=== PATIENT | female | born 1945 | race Caucasian/White ===

== ENCOUNTER 2020-11-07 07:01 | Outpatient (REF) | payer MEDICARE, BC, SELFPAY ==
[2020-11-07 08:24] LABS: Hemoglobin 11.7 g/dl (12.0-16.0); Mean Corpuscular HGB Conc 31.6 g/dl (31.0-35.0); Mean Corpuscular Hemoglobin 30.2 pg (27.0-33.0); Mean Corpuscular Volume 95.4 fL (80-98); Mean Platelet Volume 10.9 fL (9.4-12.3); Platelet Count 164 X10*3/uL (160-400); Red Blood Count 3.88 X10*6/uL (4.20-5.50); Red Cell Distribution Width 13.3 % (11.0-16.0)
[2020-11-07 08:37] LABS: Alanine Aminotransferase 27 U/L (0-31); Albumin Level 4.4 g/dL (3.5-5.0); Alkaline Phosphatase 59 U/L (39-117); Anion Gap 14 (12-20); Aspartate Amino Transferase 24 U/L (5-31); Bilirubin Total 0.6 mg/dL (0.0-1.0); Blood Urea Nitrogen 27 mg/dL (9-16); Calcium 9.2 mg/dL (8.4-10.2); Carbon Dioxide 27 mmol/L (22-29); Chloride 106 mmol/L (96-108); Cholesterol 187 mg/dL; Estimated Glomerular Filt Rate 50; Glucose Fasting 102 mg/dL (60-99); HDL Cholesterol 79 mg/dL; LDL Cholesterol Calculated 98 mg/dl; Potassium 4.2 mmol/L (3.3-5.1); Sodium 143 mmol/L (135-145); Total Protein 7.3 g/dL (6.5-8.0); Triglycerides 54 mg/dL
[2020-11-07 08:48] LABS: Glucose Urine UA NEG (NEG); Leukocyte Esterase Urine NEG (NEG); Nitrite Urine NEG (NEG); PH 5.5 (5.0-8.0); Specific Gravity - Urine >= 1.030 (1.005-1.025); Urine Blood NEG (NEG); Urine Ketones NEG (NEG); Urine Protein NEG (NEG-TRACE)
[2020-11-07 08:58] LABS: Appearance Urine CLEAR; Color Urine YELLOW
[2020-11-07 09:02] LABS: Vitamin D 25-OH Total 33.8 ng/mL (>30)
[2020-11-07 12:37] LABS: Amorphous Sediment Urine 2+ /LPF; RBC Urine 0 /HPF (0); Squamous Epithelial Cell Urine TRACE /LPF; WBC Urine 0 /HPF (0-4)
== END 2020-11-07 07:02 | disposition home or self-care (01) ==
LOC: HO.LAB 07:01
PROVIDERS: PCP Internal Medicine; Visit Provider Internal Medicine
DX: Z00.00 Encounter for general adult medical examination without abnormal findings (principal); I10 Essential (primary) hypertension
CPT/HCPCS: 36415; 80053; 80061; 81001; 82306; 85027

== ENCOUNTER 2021-11-04 07:14 | Outpatient (REF) | payer MEDICARE, BC, SELFPAY ==
[2021-11-04 07:56] LABS: Hematocrit 37.9 % (37.0-47.0); Hemoglobin 11.8 g/dl (12.0-16.0); Mean Corpuscular HGB Conc 31.1 g/dl (31.0-35.0); Mean Corpuscular Hemoglobin 29.4 pg (27.0-33.0); Mean Corpuscular Volume 94.5 fL (80.0-98.0); Mean Platelet Volume 10.6 fL (9.4-12.3); Platelet Count 165 X10*3/uL (160-400); Red Blood Count 4.01 X10*6/uL (4.20-5.50); Red Cell Distribution Width 13.1 % (11.0-16.0); White Blood Count 6.2 X10*3/uL (4.8-10.8)
[2021-11-04 08:41] LABS: Alanine Aminotransferase 28 U/L (0-31); Albumin Level 4.6 g/dL (3.5-5.0); Alkaline Phosphatase 56 U/L (39-117); Anion Gap 10 (12-20); Aspartate Amino Transferase 25 U/L (5-31); Bilirubin Total 0.5 mg/dL (0.0-1.0); Blood Urea Nitrogen 40 mg/dL (9-16); Calcium 9.9 mg/dL (8.4-10.2); Carbon Dioxide 31 mmol/L (22-29); Chloride 106 mmol/L (96-108); Cholesterol 198 mg/dL; Estimated Glomerular Filt Rate 43; Glucose Fasting 107 mg/dL (60-99); HDL Cholesterol 82 mg/dL; LDL Cholesterol Calculated 105 mg/dl; Sodium 143 mmol/L (135-145); Total Protein 7.4 g/dL (6.5-8.0); Triglycerides 59 mg/dL
[2021-11-04 08:45] LABS: TSH reflex Free T4 1.39 uIU/mL (0.32-4.0); Vitamin D 25-OH Total 38.3 ng/mL (>30)
[2021-11-04 08:47] LABS: Creatinine Urine 128.38 mg/dL; Microalbum/Creatinine Ratio Ur 72.4 ug/mg cr
[2021-11-04 08:54] LABS: Estimated Average Glucose 111 mg/dL; Hemoglobin A1c % 5.5 %
== END 2021-11-04 07:15 | disposition home or self-care (01) ==
LOC: HO.LAB 07:14
PROVIDERS: PCP Physician Assistant; Visit Provider Physician Assistant
DX: I10 Essential (primary) hypertension (principal); M81.0 Age-related osteoporosis without current pathological fracture
CPT/HCPCS: 36415; 80053; 80061; 82043; 82306; 83036; 84443; 85027

== ENCOUNTER 2021-11-15 08:13 | Outpatient (REF) | payer MEDICARE, BC, SELFPAY ==
--- NOTE | ~2021-11-15 | MM_ITS ---
EXAMINATION: MM SCREENING DIGITAL BREAST TOMOSYNTHESIS, BILATERAL CLINICAL INFORMATION: Screening. Asymptomatic. The lifetime risk of breast cancer based on the Tyrer-Cuzick Model is 2%. COMPARISON: Mammography: 04/17/2018, 03/28/2017, 02/09/2016 TECHNIQUE: Digital breast tomosynthesis is performed in both the craniocaudal and mediolateral oblique views along with computer-aided detection (CAD). Synthesized 2D images are generated from the tomosynthesis. Additional left MLO view is provided. FINDINGS: There are scattered areas of fibroglandular density (ACR BI-RADS breast composition Category b). There are no significant masses, abnormal calcifications, or other abnormalities. Nodular asymmetry medial left breast noted on prior studies is not seen with certainty. No developing density or architectural abnormality. MM/MM tomosynthesis screening BI IMPRESSION: No mammographic evidence of malignancy. ASSESSMENT: BI-RADS 2: Benign RECOMMENDATION: Routine annual mammography screening. This patient's information was entered into a reminder system with a target due date for their next mammogram.
--- NOTE | ~2021-11-15 | MM_ITS ---
EXAMINATION: BONE DENSITOMETRY CLINICAL INDICATION: Age-related osteoporosis without current pathological fracture. COMPARISON: Previous BD dated 04/17/2018 and baseline BD dated 09/22/2007. TECHNIQUE: Using a [employer] DXA System (software version: 13.1) manufactured by [employer], dual-energy x-ray absorptiometry was performed of the lumbar spine and left hip. The images are of good technical quality. Summary results are attached. FINDINGS: AP SPINE L1-L4: Current: BMD 0.999 g/cm2, Z-score 0.8, T-score -1.5, osteopenia, 0.7% decrease from previous, 5.8% decrease from baseline (<5% change is not significant). Prior: BMD 1.006 g/cm2. Baseline: BMD 1.061 g/cm2. LEFT FEMUR, NECK: Current: BMD 0.626 g/cm2, Z-score -0.7, T-score -3.0, osteoporosis. Prior: BMD 0.687 g/cm2. Baseline: BMD 0.742 g/cm2. LEFT FEMUR, TOTAL: Current: BMD 0.722 g/cm2, Z-score -0.1, T-score -2.3, osteopenia, 4.9% decrease from previous, 15.9% decrease from baseline (<5% change is not significant). Prior: BMD 0.759 g/cm2. Baseline: BMD 0.859 g/cm2. IDENTIFIED RISK FACTORS: Menopause, thiazide. HISTORY OF FRACTURE: None listed. MEDICATIONS: Calcium or multivitamin. MM/XR DEXA axial skeleton IMPRESSION: 1. DIAGNOSIS: Osteoporosis based on the lowest T-score value of -3.0 in the femoral neck applying World Health Organization criteria. 2. 10-YEAR FRACTURE RISK PREDICTION, FRAX: According to the guidelines, FRAX calculation should only be performed on patients in the osteopenia bone density category. Therefore, FRAX was not performed on this patient. 3. Treatment Recommendations: NOF guidelines recommend consideration for treatment in postmenopausal women and men age 50 and older presenting with the following: -A hip or vertebral (clinical or morphometric) fracture. -T-score less than or equal to -2.5 at the femoral neck or spine after appropriate evaluation to exclude secondary causes. -Low bone mass at the hip or spine and a 10-year fracture probability by FRAX of greater than or equal to 3% for hip fracture or greater than or equal to 20% for major osteoporotic fracture based on the [place] adapted WHO algorithm. 4. Other Recommendations: All treatment decisions require clinical judgment and consideration of individual patient factors, including patient preferences, comorbidities, previous drug use, risk factors not captured in the FRAX model (e.g. frailty, falls, vitamin D deficiency, increased bone turnover, interval significant decline in bone density) and possible under or overestimation of fracture risk by FRAX. Additional medical evaluation for secondary cause of low bone mineral density may be appropriate. FUTURE SCAN RECOMMENDATION: People with diagnosed cases of osteoporosis or at high risk for fracture should have regular bone mineral density tests. For patients eligible for Medicare, routine testing is allowed once every 2 years. The testing frequency can be increased to one year for patients who have rapidly progressing disease, those who are receiving or discontinuing medical therapy to restore bone mass, or have additional risk factors.
== END 2021-11-15 08:14 | disposition home or self-care (01) ==
LOC: HO.MAMMO 08:13
PROVIDERS: Visit Provider Physician Assistant
DX: Z12.31 Encounter for screening mammogram for malignant neoplasm of breast (principal); M81.0 Age-related osteoporosis without current pathological fracture; Z78.0 Asymptomatic menopausal state; Z79.899 Other long term (current) drug therapy
CPT/HCPCS: 77063; 77067; 77080

== ENCOUNTER 2022-01-10 09:10 | Outpatient (REF) | payer MEDICARE, BC, SELFPAY ==
--- NOTE | ~2022-01-10 | XR_ITS ---
EXAMINATION: XR CHEST CLINICAL INFORMATION: Bronchitis. COMPARISON: None TECHNIQUE: 2 views of the chest were obtained. FINDINGS: The lungs are well-expanded and clear. Heart size and pulmonary vascularity is normal. No gross bony abnormality seen. XR/XR chest 2V IMPRESSION: Unremarkable chest exam.
== END 2022-01-10 09:11 | disposition home or self-care (01) ==
LOC: HO.XRAY 09:10
PROVIDERS: PCP Physician Assistant; Visit Provider Physician Assistant
DX: J40 Bronchitis, not specified as acute or chronic (principal)
CPT/HCPCS: 71046

== ENCOUNTER 2022-10-27 07:18 | Outpatient (REF) | payer MEDICARE, BC, SELFPAY ==
[2022-10-27 08:03] LABS: Hematocrit 37.4 % (37.0-47.0); Hemoglobin 11.9 g/dl (12.0-16.0); Mean Corpuscular HGB Conc 31.8 g/dl (31.0-35.0); Mean Corpuscular Volume 94.2 fL (80.0-98.0); Mean Platelet Volume 10.8 fL (9.4-12.3); Platelet Count 147 X10*3/uL (160-400); Red Blood Count 3.97 X10*6/uL (4.20-5.50); Red Cell Distribution Width 12.8 % (11.0-16.0); White Blood Count 5.8 X10*3/uL (4.8-10.8)
[2022-10-27 08:58] LABS: Microalbum/Creatinine Ratio Ur 52.3 ug/mg cr
[2022-10-27 12:29] LABS: Alanine Aminotransferase 19 U/L (0-31); Albumin Level 4.3 g/dL (3.5-5.0); Alkaline Phosphatase 56 U/L (39-117); Anion Gap 16 (12-20); Aspartate Amino Transferase 19 U/L (5-31); Bilirubin Total 0.5 mg/dL (0.0-1.0); Blood Urea Nitrogen 29 mg/dL (9-16); Calcium 9.3 mg/dL (8.4-10.2); Carbon Dioxide 24 mmol/L (22-29); Chloride 108 mmol/L (96-108); Cholesterol 185 mg/dL; Estimated Glomerular Filt Rate 45; Glucose Fasting 104 mg/dL (60-99); HDL Cholesterol 72 mg/dL; LDL Cholesterol Calculated 101 mg/dl; Potassium 4.7 mmol/L (3.3-5.1); Sodium 143 mmol/L (135-145); Total Protein 6.9 g/dL (6.5-8.0); Triglycerides 60 mg/dL
[2022-10-27 12:44] LABS: TSH reflex Free T4 1.15 uIU/mL (0.32-4.0)
== END 2022-10-27 07:19 | disposition home or self-care (01) ==
LOC: HO.LAB 07:18
PROVIDERS: PCP Physician Assistant; Visit Provider Physician Assistant
DX: I10 Essential (primary) hypertension (principal); E78.2 Mixed hyperlipidemia
CPT/HCPCS: 36415; 80053; 80061; 82043; 84443; 85027

== ENCOUNTER 2022-11-28 14:17 | Outpatient (REF) | payer MEDICARE, BC, SELFPAY ==
--- NOTE | ~2022-11-28 | US_ITS ---
EXAMINATION: US EXTRACRANIAL CAROTID DUPLEX, BILATERAL CLINICAL INFORMATION: Right carotid bruit. COMPARISON: None available. TECHNIQUE: Real-time ultrasound and Doppler techniques (integrating B-mode 2-D vascular images, Doppler spectral analysis and color-flow Doppler imaging) were utilized to interrogate the extracranial carotid arteries, the vertebral arteries and proximal subclavian arteries bilaterally. The degree of stenosis is determined by criteria similar to NASCET. FINDINGS: Right Side: 1. There is moderate atherosclerotic plaque seen in the bifurcation/proximal ICA region. 2. The common carotid artery PSV proximally is 108 cm/s and distally 44 cm/s. 3. The proximal internal carotid artery velocities are 65 cm/s systolic and 14 cm/s diastolic. 4. The proximal external carotid artery PSV is 73 cm/s. 5. The vertebral artery shows antegrade flow. 6. The subclavian artery waveforms are normal. Left Side: 1. There is moderate atherosclerotic plaque seen in the bifurcation/proximal ICA region. 2. The common carotid artery PSV proximally is 126 cm/s and distally 92 cm/s. 3. The proximal internal carotid artery velocities are 51 cm/s systolic and 16 cm/s diastolic. 4. The proximal external carotid artery PSV is 102 cm/s. 5. The vertebral artery shows antegrade flow. 6. The subclavian artery waveforms are normal. Arrhythmia present. US/US carotid duplex BI IMPRESSION: 1. RIGHT: Minimal, non-hemodynamically significant stenosis of the proximal right internal carotid artery corresponding to a 0-49% stenosis by velocity criteria. 2. LEFT: Minimal, non-hemodynamically significant stenosis of the proximal left internal carotid artery corresponding to a 0-49% stenosis by velocity criteria.
== END 2022-11-28 14:18 | disposition home or self-care (01) ==
LOC: HO.HMGCX 14:17
PROVIDERS: PCP Physician Assistant; Visit Provider Physician Assistant
DX: R09.89 Other specified symptoms and signs involving the circulatory and respiratory systems (principal)
CPT/HCPCS: 93880

== ENCOUNTER 2023-05-20 07:41 | Outpatient (REF) | payer MEDICARE, BC, SELFPAY ==
[2023-05-20 08:37] LABS: Hematocrit 35.9 % (37.0-47.0); Hemoglobin 11.4 g/dl (12.0-16.0); Mean Corpuscular HGB Conc 31.8 g/dl (31.0-35.0); Mean Corpuscular Volume 94.5 fL (80.0-98.0); Mean Platelet Volume 10.8 fL (9.4-12.3); Platelet Count 127 X10*3/uL (160-400); Red Cell Distribution Width 13.1 % (11.0-16.0); White Blood Count 3.8 X10*3/uL (4.8-10.8)
== END 2023-05-20 07:42 | disposition home or self-care (01) ==
LOC: HO.LAB 07:41
PROVIDERS: PCP Physician Assistant; Visit Provider Physician Assistant
DX: E78.2 Mixed hyperlipidemia (principal); I10 Essential (primary) hypertension
CPT/HCPCS: 36415; 80053; 80061; 85027

== ENCOUNTER 2023-05-29 08:01 | Outpatient (AMB) | payer MEDICARE, BC, SELFPAY ==
[2023-05-29 08:11] VITALS: BP 132/76; PULSE 71; O2SAT 97; BMI 19.9
--- NOTE | 2023-05-29 08:11 | A.OFFPC_ITS ---
Vital Signs 05/29/23 08:11 Height 5 ft 2 in Weight 109 lb BMI 19.9 BP 132/76 Blood Pressure Location Lt brachial Position Sitting Pulse 71 Pulse Source Pulse Oximeter Pulse Oximetry (%) 97 Oxygen Delivery Method Room Air Intake Visit Reasons: Follow-up hypertension /hyperlipidemia Allergies alendronate sodium Adverse Reaction (Intermediate, Verified 05/29/23 08:28) red eyes hydrochlorothiazide Adverse Reaction (Intermediate, Verified 05/29/23 08:28) frequent urination Medication List - Last Reconciled 05/29/23 by Emerson Kathleen PA-C atenolol 50 mg PO DAILY atorvastatin 10 mg PO DAILY cholecalciferol (vitamin D3) 50 mcg PO DAILY 90 days clonidine HCl 0.1 mg PO BID 90 days ibuprofen 600 mg PO TID trazodone 100 mg PO BEDTIME Tobacco use date assessed: 11/22/22 Fall risk assessment: No Falls in past year Last assessed Fall Risk: 05/29/23 Dental Screening Dental Screen Date: 05/29/23 Did you have a dental visit in the last 12 months?: No Did you have a dental problem in the last 6 months where you did not have access to dental care?: No Was dental information given to patient?: Patient has dentist HPI Follow-up hypertension /hyperlipidemia HPI Details Patient is a 76-year-old female here today for a PE .? Patient has a past medical history significant for hypertension, hyperlipidemia, insomnia, carotid stenosis .. HTN: Does not monitor her BP at her BP at home.? Today in office blood pressure acceptable.? ..? She denies any headaches, shortness of breath, chest discomfort. .. Carotid stenosis: Carotid ultrasound done in November 2022 showing a moderate atherosclerotic prior in the right carotid artery. No severe stenosis requiring intervention. .. HLd: Lipid panel has been stable showing appropriate total cholesterol and LDL. Continues on on statin therapy without any side effects.? Will continue to follow lipid panel.? .. insomnia: Continues on trazodone with good effect on her sleep, Recently increased her trazodone to 100 mg at night which has been effective for her sleep. .. Reviewed labs and noted a pancytopenia. She does report some daytime fatigue, attributes this to getting older. Will refer to Hematology for further evaluation. Laboratory Tests 05/20/23 08:06 WBC 3.8 L RBC 3.80 L Hgb 11.4 L Plt Count 127 L Creatinine 0.99 Fasting Glucose 104 H Cholesterol 163 LDL Cholesterol, C alc 81 PFSH Medical History Annual physical exam Anxiety Cataract Osteoporosis Insomnia HTN (hypertension) Surgical History H/O colonoscopy Family History Father Lung cancer Mother CVD (cardiovascular disease) Stroke Social History Housing: House Alcohol intake: never Patient Tobacco Use Status: Never used Tobacco e-Cigarette/Vaping Use: Never Used Second Hand Smoke Exposure: No service: No Current occupational status: retired Current occupation: [employer]- [employer] Cognitive needs: No Hearing needs: No Vision needs: Yes (Glasses) Questionnaire PHQ-9 Over the last 2 weeks, how often have you been bothered by any of the following problems? 1. Little interest or pleasure in doing things: not at all 2. Feeling down, depressed, or hopeless: not at all 3. Trouble falling or staying asleep, or sleeping too much: not at all 4. Feeling tired or having little energy: not at all 5. Poor appetite or overeating: not at all 6. Feeling bad about yourself - or that you are a failure or have let yourself or your family down: not at all 7. Trouble concentrating on things, such as reading the newspaper or watching television: not at all 8. Moving or speaking so slowly that other people could have noticed. Or the opposite - being so fidgety or restless that you have been moving around a lot more than usual: not at all 9. Thoughts that you would be better off or of hurting yourself in some way: not at all Total score: 0 Depression Screening Interpretation: Negative Depression Screening Done: Yes 91118 - PHQ-9 Billing: Yes Source: Developed by Drs. Antonio Bruce, Brie Gray, Ubaldo Torres and colleagues, with an educational john from [employer]. Thrive Questionnaire Date Thrive assessed: 11/22/22 AUDIT C Alcohol Use Questionnaire (AUDIT-C) 1. How often do you have a drink containing alcohol?: Never 3. How often do you have six or more drinks on one occasion?: Never Total Score: 0 JULIAN-7 AMB Questionnaire JULIAN-7 Date JULIAN - 7 assessed: 11/22/22 Source: Developed by Drs. Antonio Bruce, Brie Gray, Ubaldo Torres and colleagues, with an educational john from [employer]. Physical exam (Primary Care) Vital Signs: Last Vital Signs Pulse 71 05/29/23 08:11 BP 132/76 05/29/23 08:11 Pulse Ox 97 05/29/23 08:11 Oxygen Delivery Method Room Air 05/29/23 08:11 BMI result Body Mass Index 19.9 Tobacco/Smoking Status: Tobacco use Status Tobacco use date assessed 11/22/22 05/29/23 08:12 Patient Tobacco Use Status Never used Tobacco 05/29/23 08:12 e-Cigarette/Vaping Use Never Used 05/29/23 08:12 PHQ-9: PHQ-9 Score PHQ-9: Total score 0 05/29/23 08:12 Depression Screening Interpretation: Negative Thrive Assessment: Date of Thrive Assessment Date Thrive assessed 11/22/22 05/29/23 08:12 Assessment and Plan Assessment & Plan (1) HTN (hypertension): Code(s): I10 - Essential (primary) hypertension Qualifiers: Hypertension type: primary hypertension Qualified Code(s): I10 - Essential (primary) hypertension Plan: Blood pressure today in office acceptable. Will continue her on her current dose of atenolol. Had side effect of urinary frequency with hydrochlorothiazide. Goal blood pressures to be below 140/90. (2) Right carotid bruit: Code(s): R09.89 - Other specified symptoms and signs involving the circulatory and respiratory systems Plan: Carotid ultrasound without any severe stenosis.. Will continue to manage cholesterol and blood pressure. (3) Mixed hyperlipidemia: Code(s): E78.2 - Mixed hyperlipidemia Plan: Patient continues on statin therapy without side effect. Most recent lipid panel showing appropriate total cholesterol and LDL.. Goal LDL to be below 130. (4) Insomnia: Code(s): G47.00 - Insomnia, unspecified Qualifiers: Insomnia type: primary Qualified Code(s): F51.01 - Primary insomnia Plan: Has been sleeping very well with trazodone 100 mg. (5) Pancytopenia: Code(s): D61.818 - Other pancytopenia Plan: Noted to pancytopenia most recent labs. Does report some fatigue during the day. Will refer to Hematology for further evaluation. Orders: Orders Comprehensive [place]. Panel Fast 6 Months I10 - Essential (primary) hypertension Lipid Panel 6 Months E78.2 - Mixed hyperlipidemia Microalbumin, Random (w Creat) 6 Months I10 - Essential (primary) hypertension Referrals Hematology & Oncology Referral D61.818 - Other pancytopenia Medications: Refilled ibuprofen 600 mg PO TID 90 tabs 3RF Coding Level of Care Code Est Pt Level 4 (58416) Diagnoses Primary hypertension I10 Hypertension type: primary hypertension Right carotid bruit R09.89 Mixed hyperlipidemia E78.2 Primary insomnia F51.01 Insomnia type: primary Pancytopenia D61.818
== END 2023-05-29 08:47 | disposition home or self-care (01) ==
PROVIDERS: Visit Provider Physician Assistant
DX: I10 Essential (primary) hypertension (principal); R09.89 Other specified symptoms and signs involving the circulatory and respiratory systems; E78.2 Mixed hyperlipidemia; D61.818 Other pancytopenia; F51.01 Primary insomnia
CPT/HCPCS: 99214

== ENCOUNTER → 2023-06-19 13:50 | Outpatient (BNV) | payer MEDICARE, BC, SELFPAY | PROVIDERS: PCP Physician Assistant; Visit Provider Internal Medicine | DX: D61.818 Other pancytopenia (principal) | CPT/HCPCS: 99204; 99213 ==

== ENCOUNTER 2023-11-20 08:08 | Outpatient (REF) | payer MEDICARE, BC, SELFPAY ==
[2023-11-20 10:12] LABS: Alanine Aminotransferase 18 U/L (0-31); Alkaline Phosphatase 49 U/L (39-117); Anion Gap 9 (12-20); Aspartate Amino Transferase 18 U/L (5-31); Bilirubin Total 0.4 mg/dL (0.0-1.0); Blood Urea Nitrogen 22 mg/dL (9-16); Calcium 9.2 mg/dL (8.4-10.2); Carbon Dioxide 30 mmol/L (22-29); Chloride 108 mmol/L (96-108); Cholesterol 155 mg/dL (<200); Estimated Glomerular Filt Rate 54; Glucose Fasting 96 mg/dL (60-99); HDL Cholesterol 69 mg/dL (>40); LDL Cholesterol Calculated 74 mg/dL (<100); Potassium 4.3 mmol/L (3.3-5.1); Sodium 143 mmol/L (135-145); Total Protein 6.8 g/dL (6.5-8.0); Triglycerides 63 mg/dL (<150)
[2023-11-20 10:26] LABS: Creatinine Urine 331.25 mg/dL; Microalbum/Creatinine Ratio Ur 37.4 ug/mg cr (<30)
== END 2023-11-20 08:09 | disposition home or self-care (01) ==
LOC: HO.LAB 08:08
PROVIDERS: PCP Physician Assistant; Visit Provider Physician Assistant
DX: I10 Essential (primary) hypertension (principal); E78.2 Mixed hyperlipidemia
CPT/HCPCS: 36415; 80053; 80061; 82043; 82570

== ENCOUNTER 2023-11-25 09:07 | Outpatient (AMB) | payer MEDICARE, BC, SELFPAY ==
[2023-11-25 09:40] VITALS: BP 156/60; PULSE 58; O2SAT 96; BMI 18.0
--- NOTE | 2023-11-25 09:40 | A.OFFPC_ITS ---
Vital Signs 11/25/23 09:40 Height 5 ft 3.5 in Weight 103 lb 8 oz BMI 18.0 BP 156/60 H Blood Pressure Location Lt brachial Position Sitting Pulse 58 Pulse Source Pulse Oximeter Pulse Oximetry (%) 96 Oxygen Delivery Method Room Air Intake Visit Reasons: Annual Exam Intake Note: Patient is here today for a physical. 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 Accompanied by: Self / Same As Patient Allergies alendronate sodium Adverse Reaction (Intermediate, Verified 11/25/23 10:04) red eyes hydrochlorothiazide Adverse Reaction (Intermediate, Verified 11/25/23 10:04) frequent urination Medication List - Last Reconciled 11/25/23 by Emerson Kathleen PA-C atenolol 50 mg PO DAILY atorvastatin 10 mg PO DAILY cholecalciferol (vitamin D3) 50 mcg PO DAILY 90 days clonidine HCl 0.1 mg PO BID 90 days ibuprofen 600 mg PO TID trazodone 100 mg PO BEDTIME Tobacco use date assessed: 11/25/23 Fall risk assessment: No Falls in past year Last assessed Fall Risk: 11/25/23 Dental Screening Dental Screen Date: 11/25/23 Did you have a dental visit in the last 12 months?: No Did you have a dental problem in the last 6 months where you did not have access to dental care?: No Was dental information given to patient?: Patient has dentist HPI Annual Exam HPI Details Patient is a 76-year-old female here today for a PE .? Patient has a past medical history significant for hypertension, hyperlipidemia, insomnia, carotid stenosis Concern--> has a skin lesion over her left facial she, has called dermatology group and has an upcoming appointment in February .. HTN: Patient's blood pressure elevated today in office. She does not regularly check her blood pressure at home...? She denies any headaches, shortness of breath, chest discomfort. Noted microalbuminuria on most recent labs. PLAN: Will start low-dose lisinopril for renal protection and better blood pressure control. .. Carotid stenosis: Carotid ultrasound done in November 2022 showing a moderate atherosclerotic prior in the right carotid artery. No severe stenosis requiring intervention. .. HLd: Lipid panel has been stable showing appropriate total cholesterol and LDL. Continues on on statin therapy without any side effects.? Will continue to follow lipid panel.? .. insomnia: Continues on trazodone with good effect on her sleep, Recently increased her trazodone to 100 mg at night which has been effective for her s leep. Colon cancer screening: Not interested in any further colonoscopies Mammogram: Done in January of 2022 BI-RADS 1- has gotten reminder though not interested in any further mammograms due date age Vaccines: Up-to-date with COVID vaccine, pneumonia vaccine, Laboratory Tests 10/27/22 06/19/23 11/20/23 07:40 14:23 08:37 Hgb 11.2 L Creatinine 1.00 Cholesterol 155 LDL Cholesterol, C alc 74 Urine Microalbumin 82.0 11/20/23 Unknown Hgb Creatinine Cholesterol LDL Cholesterol, C alc Urine Microalbumin 124.0 PFSH Medical History Annual physical exam Anxiety Cataract Osteoporosis Insomnia HTN (hypertension) Surgical History H/O colonoscopy Family History Father Lung cancer Mother CVD (cardiovascular disease) Stroke Social History Household Members: Spouse and Family Housing: House Alcohol intake: never Patient Tobacco Use Status: Never used Tobacco e-Cigarette/Vaping Use: Never Used Second Hand Smoke Exposure: No service: No Current occupational status: retired 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 1. Little interest or pleasure in doing things: not at all 2. Feeling down, depressed, or hopeless: not at all 3. Trouble falling or staying asleep, or sleeping too much: not at all 4. Feeling tired or having little energy: not at all 5. Poor appetite or overeating: not at all 6. Feeling bad about yourself - or that you are a failure or have let yourself or your family down: not at all 7. Trouble concentrating on things, such as reading the newspaper or watching television: not at all 8. Moving or speaking so slowly that other people could have noticed. Or the opposite - being so fidgety or restless that you have been moving around a lot more than usual: not at all 9. Thoughts that you would be better off or of hurting yourself in some way: not at all Total score: 0 Depression Screening Interpretation: Negative Depression Screening Done: Yes 87965 - PHQ-9 Billing: Yes Source: Developed by Drs. Antonio Bruce, Brie Gray, Ubaldo Torres and colleagues, with an educational john from [employer]. Thrive Questionnaire Date Thrive assessed: 11/25/23 I am a: Patient What is your living situation today?: I have a steady place to live Within the past 12 months, did the food you bought not last and you didn't have the money to get more?: Never true Within the past 12 months, did you worry whether your food would run out before you got money to buy more?: Never true Do you have trouble paying for medicines?: No Do you have trouble getting transportation to medical appointments?: No Do you have trouble paying your heating and electricity bill?: No Do you have trouble taking care of your child, family member or friend?: No Do you have trouble with day-to-day activities such as bathing, preparing meals, shopping, managing finances, etc.?: No Are you currently unemployed and looking for a job?: No Are you interested in more education?: No Please select the resources that you would like help with: None Currently or been in a relationship where the following occur: no concerns reported THRIVE Score: 0 AUDIT C Alcohol Use Questionnaire (AUDIT-C) 1. How often do you have a drink containing alcohol?: Never 3. How often do you have six or more drinks on one occasion?: Never Total Score: 0 JULIAN-7 AMB Questionnaire JULIAN-7 Date JULIAN - 7 assessed: 11/25/23 Feeling nervous, anxious, or on edge: 0 = Not at all Not being able to stop or control worryin = Not at all Worrying too much about different things: 0 = Not at all Trouble relaxin = Not at all Being so restless that it is hard to sit still: 0 = Not at all Becoming easily annoyed or irritable: 0 = Not at all Feeling afraid as if something awful might happen: 0 = Not at all Total JULIAN-7 score (0-4 normal; 5-9 mild; 10-14 moderate; 15-21 severe): 0 Source: Developed by Drs. Antonio Bruce, Brie Gray, Ubaldo Torres and colleagues, with an educational john from [employer]. JULIAN-7 Assessment Billing JULIAN-7 Assessment Tool: JULIAN-7 Assessment 47764 Review of Systems Const Denies body aches, Denies chills, Denies excessive sweating, Denies fatigue, Denies fever(s) and Denies headache(s) Eyes Denies blurry vision ENT Denies dysphagia, Denies vertigo, Denies dizziness, Denies headache(s), Denies hearing loss and Denies tinnitus Card Denies chest pain, Denies chest pain with activity, Denies syncope, Denies irregular heart rhythm and Denies dyspnea Resp Denies chest congestion, Denies cough, Denies hemoptysis, Denies dyspnea and Denies wheezing GI Denies abdominal pain, Denies melena, Denies hematochezia, Denies coffee ground emesis, Denies dysphagia, Denies diarrhea, Denies nausea and Denies vomiting Denies urinary frequency, Denies dysuria, Denies urinary hesitancy and Denies urinary urgency Musc Denies arthralgias, Denies limited range of motion, Denies muscle cramps and Denies muscle weakness Skin/Breast Denies rash and Denies skin ulcer Neuro Denies Abnormal speech present, Denies confusion, Denies vertigo, Denies dizziness, Denies syncope, Denies headache(s), Denies memory loss and Denies seizure-like activity Psych Denies anxiety, Denies confusion, Denies depression, Denies memory loss, Denies panic attacks and Denies paranoia Endo Denies excessive sweating, Denies fatigue, Denies flushing, Denies polydipsia and Denies polyuria Aller/Immun Denies wheezing Physical exam (Primary Care) Vital Signs: Last Vital Signs Pulse 58 11/25/23 09:40 BP 156/60 H 11/25/23 09:40 Pulse Ox 96 11/25/23 09:40 Oxygen Delivery Method Room Air 11/25/23 09:40 BMI result Body Mass Index 18.0 Tobacco/Smoking Status: Tobacco use Status Tobacco use date assessed 11/25/23 11/25/23 09:45 Patient Tobacco Use Status Never used Tobacco 11/25/23 09:41 e-Cigarette/Vaping Use Never Used 11/25/23 09:41 PHQ-9: PHQ-9 Score PHQ-9: Total score 0 11/25/23 10:09 Depression Screening Interpretation: Negative Thrive Assessment: Date of Thrive Assessment Date Thrive assessed 11/25/23 11/25/23 09:45 Currently or been in a relationship where the following occur: no concerns reported Const General: cooperative, comfortable, no acute distress, alert and awake; No confusion Orientation/consciousness: oriented to person, oriented to place, patient oriented x3 and No confusion HENMT Head: Yes normocephalic Ears: external ears normal and TM's normal bilaterally Face and sinus: No sinus tenderness Mouth: Normal oral and palatal mucosa present and tongue normal Teeth and gingiva: dentition normal and gingiva normal Throat: Yes posterior oropharynx normal, Yes tonsils normal and Yes uvula midline Eyes Conjunctivae: conjunctivae normal Sclerae: sclerae normal Pupils: Equal, round and reactive pupils present EOM: EOMs intact bilaterally Direct Ophthalmoscopy: No no photophobia Neck Neck: Yes no lymphadenopathy, No tender and Yes no JVD Thyroid: Thyroid normal Carotids: no bruits Chest Chest palpation & inspection: no tenderness Resp Effort & Inspection: normal respiratory effort, no audible wheezes, not labored and no stridor Auscultation: no crackles, no rales, no rhonchi and no wheezes Cardio Jugular venous distension: no JVD Rate: regular rate, not bradycardic and not tachycardic Rhythm: regular rhythm Bruits: no carotid bruits Peripheral pulses: Peripheral pulses 2+ throughout GI Inspection: Yes normal to inspection, No abdominal wall ecchymosis and No visible herniation Palpation (GI): Soft to palpation, nontender, no guarding, not rigid and No hepatosplenomegaly present Auscultation: normoactive bowel sounds General: Yes no CVA tenderness Back/Spine/Pelvis Back: no CVA tenderness and No back tenderness Cervical Spine: cervical ROM normal Thoracic/Lumbar Spine: thoracic and lumbar spine normal to inspection, straight leg raise negative bilaterally, No thoraco-lumbar ROM limited and No lumbar spinal tenderness Skin Lesions: no lesions Rashes: no rashes Wounds: no wounds Neuro General: oriented to person, oriented to place, patient oriented x3, CN's II-XI intact bilaterally and No confusion Cranial nerves: Yes Equal, round and reactive pupils present and Yes Normal accommodation reflex present Cognition (Neuro): normal cognition Speech: No Abnormal speech present Gait exam (Neuro): Normal gait present Motor exam (neuro): 5/5 motor strength present throughout Extrem Right upper extremity: full ROM; no cyanosis Left upper extremity: full ROM; no cyanosis Right lower extremity: no edema Left lower extremity: no edema Psych Appearance: grossly normal Mental Status: mental status grossly normal Affect: normal affect Attitude: cooperative Thought process: Normal thought process present Assessment and Plan Assessment & Plan (1) Annual physical exam: Code(s): Z00.00 - Encounter for general adult medical examination without abnormal findings (2) HTN (hypertension): Code(s): I10 - Essential (primary) hypertension Qualifiers: Hypertension type: primary hypertension Qualified Code(s): I10 - Essential (primary) hypertension Plan: Patient's blood pressure elevated today in office. Will add on lisinopril 5 mg for renal protection. Also has microalbuminuria. Will recheck urine in 6 months.. Will continue her on her current dose of atenolol. Had side effect of urinary frequency with hydrochlorothiazide. Goal blood pressures to be below 140/90. (3) Right carotid bruit: Code(s): R09.89 - Other specified symptoms and signs involving the circulatory and respiratory systems Plan: Carotid ultrasound without any severe stenosis though does have moderate stenosis.. Will continue to manage cholesterol and blood pressure. (4) Mixed hyperlipidemia: Code(s): E78.2 - Mixed hyperlipidemia Plan: Patient continues on statin therapy without side effect. Most recent lipid panel showing appropriate total cholesterol and LDL.. Goal LDL to be below 130. (5) Insomnia: Code(s): G47.00 - Insomnia, unspecified Qualifiers: Insomnia type: primary Qualified Code(s): F51.01 - Primary insomnia Plan: Has been sleeping very well with trazodone 100 mg. (6) Pancytopenia: Code(s): D61.818 - Other pancytopenia Plan: Continues to be stable. Denies any overt signs of bleeding or bruising. Will continue to follow CBC Orders: Orders Microalbumin, Random (w Creat) Today I10 - Essential (primary) hypertension Comprehensive [place]. Panel Fast Today I10 - Essential (primary) hypertension Lipid Panel Today E78.2 - Mixed hyperlipidemia Complete Blood Count no Diff Today D61.818 - Other pancytopenia Medications: New lisinopril 5 mg PO DAILY 90 tabs 1RF 90 days I10 - Essential (primary) hypertension Patient Instructions: Goals: Control blood pressure, monitor blood pressure more often. Barriers: Age, remembering to monitor blood pressure Coding Level of Care Code Est Pt Prev Care >65y(11098) Diagnoses Annual physical exam Z00.00 Primary hypertension I10 Hypertension type: primary hypertension Right carotid bruit R09.89 Mixed hyperlipidemia E78.2 Primary insomnia F51.01 Insomnia type: primary Pancytopenia D61.818 Additional Codes JULIAN-7 Assessment Billing - JULIAN-7 Assessment Tool: JULIAN-7 Assessment 53294 ([id number])
== END 2023-11-25 10:21 | disposition home or self-care (01) ==
PROVIDERS: PCP Physician Assistant; Visit Provider Physician Assistant
DX: Z00.00 Encounter for general adult medical examination without abnormal findings (principal); I10 Essential (primary) hypertension; D61.818 Other pancytopenia; R09.89 Other specified symptoms and signs involving the circulatory and respiratory systems; E78.2 Mixed hyperlipidemia; F51.01 Primary insomnia
CPT/HCPCS: 99397

== ENCOUNTER 2024-05-13 08:02 | Outpatient (AMB) | payer MEDICARE, BC, SELFPAY ==
[2024-05-13 08:04] VITALS: BP 128/80; PULSE 78; O2SAT 100; BMI 17.3
--- NOTE | 2024-05-13 08:04 | AM.OFFWIN_ITS ---
Intake Vital Signs 05/13/24 08:04 Height 5 ft 3.5 in Weight 99 lb BMI 17.3 BP 128/80 Blood Pressure Location Rt brachial Position Sitting Pulse 78 Pulse Source Pulse Oximeter Pulse Oximetry (%) 100 Oxygen Delivery Method Room Air Intake Visit Reasons: EP-lt shoulder pain Intake Note: Patient here for left shoulder pain that has been present for about 3 weeks. Patient Tobacco Use Status: Never used Tobacco Allergies alendronate sodium Adverse Reaction (Intermediate, Verified 05/13/24 08:06) red eyes hydrochlorothiazide Adverse Reaction (Intermediate, Verified 05/13/24 08:06) frequent urination Do you need a note to return to daycare/school/sports/work: No HPI HPI Comments History of Present Illness Details Patient is a 78-year-old female complaining of left shoulder pain and an inability to move it like she normally does for about 3 weeks. She she denies any injury, any heavy lifting, moving heavy furniture, any new/repetitive movements or sleeping on a new mattress. She states that it is very uncomfortable and it feels like a ?rubber band ?and if she moves it if it is slightly into the wrong direction in, it is extremely painful. She states that it is difficult to drive a vehicle. She has tried taking 600 mg of ibuprofen every 6 hours as well as applying Abdirizak-Benjamin but it does not help at all. 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[employer]- [employer] Cognitive needs: No Hearing needs: No Vision needs: Yes (Glasses) Review of Systems Const All systems reviewed & are unremarkable except as noted in HPI and below Physical Exam Vital Signs: Last Vital Signs Pulse 78 05/13/24 08:04 BP 128/80 05/13/24 08:04 Pulse Ox 100 05/13/24 08:04 Oxygen Delivery Method Room Air 05/13/24 08:04 BMI result Body Mass Index 17.3 Const General: cooperative, healthy appearing, comfortable, well developed and other (teary) Nutritional Appearance: average body habitus Orientation/consciousness: patient oriented x3 Limitations: no limitations HEENT Head: Yes normal to inspection Ears: hearing grossly normal bilaterally General nose exam: Normal external nose present Face and sinus: Yes normal facial exam Eyes General: appearance normal, both eyes and all related structures Neck Neck: Yes normal visual inspection and Yes full ROM Resp Effort & Inspection: normal respiratory effort and able to speak in complete sentences Skin General skin exam: no rashes or lesions noted Neuro General: patient oriented x3 Extrem General: Yes normal to inspection Left upper extremity: normal to inspection and shoulder/upper arm Details: inspection abnormal and abnormal ROM Details: pain with active ROM Details: in ABduction, in extension, in flexion and external rotation-; but not in ADduction and but not in internal rotation and pain with passive ROM Details: in ABduction, in extension, in flexion and external rotation-; but not in ADduction and but not in internal rotation; no tenderness, no swelling, no abrasions, no lacerations, no ecchymosis, no deformity and no unsual warmth Assessment & Plan Assessment & Plan (1) Left shoulder pain: Code(s): M25.512 - Pain in left shoulder Qualifiers: Chronicity: acute Qualified Code(s): M25.512 - Pain in left shoulder Plan: Patient has very limited range of motion with no known injury, we will put in a sling so she can rest of properly, send some pain medication so she can be comfortable as she is teary during the exam. And send a referral to Orthopedics. (2) Sprain of shoulder, left: Code(s): S43.402A - Unspecified sprain of left shoulder joint, initial encounter Qualifiers: Encounter type: initial encounter Shoulder sprain type: unspecified sprain Qualified Code(s): S43.402A - Unspecified sprain of left shoulder joint, initial encounter Plan: see above Plan See above Orders: Orders XR shoulder LT min 2V Today M25.512 - Pain in left shoulder Referrals Orthopedics Referral M25.512 - Pain in left shoulder Medications: New tramadol 50 mg PO Q6-8H PRN 10 tabs 0RF pain Coding Level of Care Code Est Pt Level 4 (08644) Diagnoses Acute pain of left shoulder M25.512 Chronicity: acute Sprain of left shoulder, unspecified shoulder sprain type, initial encounter S43.402A Encounter type: initial encounter Shoulder sprain type: unspecified sprain
== END 2024-05-13 09:15 | disposition home or self-care (01) ==
PROVIDERS: PCP Physician Assistant; Visit Provider Physician Assistant
DX: M25.512 Pain in left shoulder (principal); S43.402A Unspecified sprain of left shoulder joint, initial encounter

== ENCOUNTER 2024-05-13 08:02 | Outpatient (REF) | payer MEDICARE, BC, SELFPAY ==
--- NOTE | ~2024-05-13 | XR_ITS ---
EXAMINATION: XR SHOULDER, LEFT CLINICAL INFORMATION: Left shoulder pain COMPARISON: None available. TECHNIQUE: Three views of the left shoulder. FINDINGS: No acute fracture or malalignment. 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 Subacromial spur. 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 Subacromial spur. Electronically signed by: Cristi Murray MD 05/13/2024 09:46 AM EDT
== END 2024-05-13 08:03 | disposition home or self-care (01) ==
LOC: HO.HMGCX 08:02
PROVIDERS: PCP Physician Assistant; Visit Provider Physician Assistant
DX: S43.402A Unspecified sprain of left shoulder joint, initial encounter (principal)
CPT/HCPCS: 73030; 99212

== ENCOUNTER 2024-05-21 07:27 | Outpatient (REF) | payer MEDICARE, BC, SELFPAY ==
[2024-05-21 08:24] LABS: Hematocrit 33.5 % (37.0-47.0); Hemoglobin 10.7 g/dl (12.0-16.0); Mean Corpuscular HGB Conc 31.9 g/dl (31.0-35.0); Mean Corpuscular Hemoglobin 30.4 pg (27.0-33.0); Mean Corpuscular Volume 95.2 fL (80.0-98.0); Mean Platelet Volume 10.7 fL (9.4-12.3); Platelet Count 152 X10*3/uL (160-400); Red Blood Count 3.52 X10*6/uL (4.20-5.50); Red Cell Distribution Width 12.9 % (11.0-16.0); White Blood Count 6.6 X10*3/uL (4.8-10.8)
[2024-05-21 09:34] LABS: Alanine Aminotransferase 19 U/L (0-31); Albumin Level 4.2 g/dL (3.5-5.0); Alkaline Phosphatase 54 U/L (39-117); Anion Gap 11 (12-20); Aspartate Amino Transferase 18 U/L (5-31); Bilirubin Total 0.3 mg/dL (0.0-1.0); Blood Urea Nitrogen 32 mg/dL (9-16); Calcium 9.5 mg/dL (8.4-10.2); Carbon Dioxide 27 mmol/L (22-29); Chloride 110 mmol/L (96-108); Cholesterol 156 mg/dL (<200); Estimated Glomerular Filt Rate 46; Glucose Fasting 108 mg/dL (60-99); HDL Cholesterol 56 mg/dL (>40); LDL Cholesterol Calculated 85 mg/dL (<100); Potassium 4.2 mmol/L (3.3-5.1); Sodium 144 mmol/L (135-145); Total Protein 7.2 g/dL (6.5-8.0); Triglycerides 79 mg/dL (<150)
[2024-05-21 11:08] LABS: Creatinine Urine 257.92 mg/dL
== END 2024-05-21 07:28 | disposition home or self-care (01) ==
LOC: HO.LAB 07:27
PROVIDERS: PCP Physician Assistant; Visit Provider Physician Assistant
DX: I10 Essential (primary) hypertension (principal); D61.818 Other pancytopenia; E78.2 Mixed hyperlipidemia
CPT/HCPCS: 36415; 80053; 80061; 82043; 82570; 85027

== ENCOUNTER 2024-05-26 08:34 | Outpatient (AMB) | payer MEDICARE, BC, SELFPAY ==
--- NOTE | 2024-05-26 08:45 | MHC.PC.OV ---
Vital Signs 05/26/24 08:46 Height 5 ft 3.5 in Weight 99 lb BMI 17.3 BP 144/72 H Blood Pressure Location Lt brachial Position Sitting Pulse 52 Pulse Source Pulse Oximeter Pulse Oximetry (%) 96 Oxygen Delivery Method Room Air Intake Visit Reasons: Follow-up hypertension Market Risk Specialist Required: No Accompanied by: Self / Same As Patient Allergies alendronate sodium Adverse Reaction (Intermediate, Verified 05/26/24 08:56) red eyes hydrochlorothiazide Adverse Reaction (Intermediate, Verified 05/26/24 08:56) frequent urination Medication List - Last Reconciled 05/26/24 by Emerson Kathleen PA-C atenolol 50 mg PO DAILY atorvastatin 10 mg PO DAILY cholecalciferol (vitamin D3) 50 mcg PO DAILY 90 days clonidine HCl 0.1 mg PO BID 90 days ibuprofen 600 mg PO TID lisinopril 5 mg PO DAILY 90 days tramadol 50 mg PO Q6-8H PRN trazodone 100 mg PO BEDTIME Tobacco use date assessed: 11/25/23 Fall risk assessment: No Falls in past year Last assessed Fall Risk: 05/26/24 Dental Screening Dental Screen Date: 11/25/23 HPI Follow-up hypertension HPI Details Patient is a 78-year-old female here today for a follow-up visit.? Patient has a past medical history significant for hypertension, hyperlipidemia, insomnia, carotid stenosis Concern--> reports having left shoulder pain and decreased range of motion over the last 2 weeks. She denies any trauma to left upper extremity. She was seen at urgent care send for x-rays that did show arthritis. She has been referred to orthopedics. She was started on tramadol p.r.n. for her pain and diclofenac gel which have been helpful. .. HTN: Patient's blood pressure elevated today in office. She does not regularly check her blood pressure at home...? She denies any headaches, shortness of breath, chest discomfort. Noted microalbuminuria on most recent labs. PLAN: Will increase her dose of lisinopril forrenal protection and better blood pressure control. .. Carotid stenosis: Carotid ultrasound done in November 2022 showing a moderate atherosclerotic prior in the right carotid artery. No severe stenosis requiring intervention. .. HLd: Lipid panel has been stable showing appropriate total cholesterol and LDL. Continues on on statin therapy without any side effects.? Will continue to follow lipid panel.? .. insomnia: Continues on trazodone with good effect on her sleep, Recently increased her trazodone to 100 mg at night which has been effective for her sleep. Laboratory Tests 11/20/23 05/21/24 05/21/24 Unknown 07:40 07:42 RBC 3.52 L Hgb 10.7 L Creatinine 1.15 Fasting Glucose 108 H Cholesterol 156 LDL Cholesterol, C alc 85 Urine Microalbumin 124.0 209.0 PFSH Medical History Annual physical exam Anxiety Cataract Osteoporosis Insomnia HTN (hypertension) Surgical History H/O colonoscopy Family History Father Lung cancer Mother CVD (cardiovascular disease) Stroke Social History Household Members: Spouse and Family Housing: House Alcohol intake: never Patient Tobacco Use Status: Never used Tobacco e-Cigarette/Vaping Use: Never Used Second Hand Smoke Exposure: No service: No Current occupational status: retired 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 Antonio Bruce, Brie Gray, Ubaldo Torres and colleagues, with an educational john from [employer]. Physical exam (Primary Care) Vital Signs: Last Vital Signs Pulse 52 05/26/24 08:46 BP 144/72 H 05/26/24 08:46 Pulse Ox 96 05/26/24 08:46 Oxygen Delivery Method Room Air 05/26/24 08:46 BMI result Body Mass Index 17.3 Tobacco/Smoking Status: Tobacco use Status Tobacco use date assessed 11/25/23 05/26/24 08:51 Patient Tobacco Use Status Never used Tobacco 05/26/24 08:51 e-Cigarette/Vaping Use Never Used 05/26/24 08:51 Thrive Assessment: Date of Thrive Assessment Date Thrive assessed 11/25/23 05/26/24 08:51 Coding Level of Care Code Est Pt Level 4 (80715) Diagnoses Primary hypertension I10 Hypertension type: primary hypertension Mixed hyperlipidemia E78.2 Sprain of left shoulder, unspecified shoulder sprain type, initial encounter S43.402A Encounter type: initial encounter Shoulder sprain type: unspecified sprain Microalbuminuria R80.9 Assessment & Plan Assessment & Plan (1) HTN (hypertension): Code(s): I10 - Essential (primary) hypertension Category: Medical Qualifiers: Hypertension type: primary hypertension Qualified Code(s): I10 - Essential (primary) hypertension Plan: Patient's blood pressure slightly elevated today in office. She does report having some slight elevations in her blood pressure at home. Noted elevation in her microalbumin. Will increase her lisinopril to 10 mg for better blood pressure control. Goal blood pressures to be below 140/90 (2) Mixed hyperlipidemia: Code(s): E78.2 - Mixed hyperlipidemia Category: Medical Plan: Most recent lipid panel showing excellent control over total cholesterol and LDL. Goal LDL to remain below 100. (3) Sprain of shoulder, left: Code(s): S43.402A - Unspecified sprain of left shoulder joint, initial encounter Category: Medical Qualifiers: Encounter type: initial encounter Shoulder sprain type: unspecified sprain Qualified Code(s): S43.402A - Unspecified sprain of left shoulder joint, initial encounter Plan: Patient has been seen at the urgent care for left shoulder pain, decreased range of motion. She reports no trauma to her left upper extremity. She has upcoming appointment with Orthopedics. She has been using tramadol and ibuprofen over the last few weeks which has been helpful in reducing her pain to a limited extent. (4) Microalbuminuria: Code(s): R80.9 - Proteinuria, unspecified Category: Medical Plan: As per HPI patient is microalbuminuria noted to be more elevated. This could be in the setting of using more NSAID due to her left shoulder bursitis. Otherwise will increase her lisinopril dose to 10 mg Orders: Orders Complete Blood Count no Diff Today I10 - Essential (primary) hypertension Lipid Panel Today E78.2 - Mixed hyperlipidemia Microalbumin, Random (w Creat) Today I10 - Essential (primary) hypertension Comprehensive [place]. Panel Fast Today I10 - Essential (primary) hypertension Medications: New lisinopril 10 mg PO DAILY 90 days 90 tabs 1RF I10 - Essential (primary) hypertension diclofenac sodium 1% apply to single elbow, wrist or hand; for hand includes palm/fingers/back of hand 2 grams topical QID 30 days PRN 100 grams 0RF pain (scale score 4-6) S43.402A - Unspecified sprain of left shoulder joint, initial encounter Refilled tramadol 50 mg PO Q6-8H PRN 10 tabs 0RF pain S43.402A - Unspecified sprain of left shoulder joint, initial encounter Discontinued lisinopril Discontinued Reason: Doctor's Order 5 mg PO DAILY 90 days 90 tabs 1RF I10 - Essential (primary) hypertension Patient Instructions: :Goal blood pressure to be below 140/90 Barriers: Adherence to physical activity and healthy eating habits
[2024-05-26 08:46] VITALS: BP 144/72; PULSE 52; O2SAT 96; BMI 17.3
== END 2024-05-26 09:12 | disposition home or self-care (01) ==
PROVIDERS: PCP Physician Assistant; Visit Provider Physician Assistant
DX: I10 Essential (primary) hypertension (principal); E78.2 Mixed hyperlipidemia; S43.402A Unspecified sprain of left shoulder joint, initial encounter; R80.9 Proteinuria, unspecified

== ENCOUNTER → 2024-05-26 08:34 | Outpatient (BNVA) | payer MEDICARE, BC, SELFPAY | PROVIDERS: PCP Physician Assistant; Visit Provider Physician Assistant | DX: I10 Essential (primary) hypertension (principal); E78.2 Mixed hyperlipidemia; R80.9 Proteinuria, unspecified; S43.402A Unspecified sprain of left shoulder joint, initial encounter | CPT/HCPCS: 99212 ==

== ENCOUNTER 2024-05-28 09:53 | Outpatient (AMB) | payer MEDICARE, BC, SELFPAY ==
--- NOTE | 2024-05-28 10:07 | A.OFFVIS_ITS ---
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 Denies injury. Patient reports that she has had ongoing pain for about 1 month now, she has tried OTC Ibuprofen and [place] with little to no relief. Her pain is felt all the time, her pain increases with ROM above the head. 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 She denies injury. She states she has pain sometimes trying to sleep at night but mostly feels some restriction of motion and difficulty combing her hair and with overhead activities. She denies numbness and tingling. She has not received any treatment for this. 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- [employer] Cognitive needs: No Hearing needs: No Vision needs: Yes (Glasses) Physical Exam Const General: cooperative, healthy appearing, no acute distress and well groomed Orientation/consciousness: oriented to person and oriented to place HEENT Head: Yes normal to inspection, Yes normocephalic and Yes atraumatic Eyes General: appearance normal, both eyes and all related structures Alignment and Position: alignment normal Conjunctivae: conjunctivae normal EOM: EOMs intact bilaterally Neck Neck: Yes normal visual inspection and Yes trachea midline Resp Other: No rerpiratory distress Effort & Inspection: normal respiratory effort and able to speak in complete sentences Cardio Other: Palpable radial pulse with no appreciable rythmic abnormalities GI Other: No abdominal distension Back/Spine/Pelvis Cervical Spine: normal cervical lordosis and cervical ROM normal Skin General skin exam: no rashes or lesions noted Neuro General: oriented to person, oriented to place and gait normal Extrem Other: 35/90/150/L1 Mildly positive [place] and Neer 4/5 empty can Results Reviewed Results Reviewed: I personally reviewed relevant radiographs. Moderate osteoarthritis left glenohumeral joint Assessment & Plan Assessment & Plan (1) Osteoarthritis of left shoulder: Code(s): M19.012 - Primary osteoarthritis, left shoulder Category: Medical Plan: This is a 78-year-old woman with 1 month history of shoulder pain. She has radiographic evidence of osteoarthritis with pretty good motion. Her symptoms are improving and I recommend physical therapy. If this is not helpful she will return for injections. Orders: Orders PT Evaluation and Treatment Today M19.012 - Primary osteoarthritis, left shoulder Coding Level of Care Code New Pt Level 3 (66281) Diagnoses Osteoarthritis of left shoulder M19.012
== END 2024-05-28 10:32 | disposition home or self-care (01) ==
PROVIDERS: PCP Physician Assistant; Visit Provider Orthopaedic Surgery
DX: M19.012 Primary osteoarthritis, left shoulder (principal)
CPT/HCPCS: 99203

== ENCOUNTER → 2024-05-28 09:53 | Outpatient (BNVA) | payer MEDICARE, BC, SELFPAY | PROVIDERS: PCP Physician Assistant; Visit Provider Orthopaedic Surgery | DX: M19.012 Primary osteoarthritis, left shoulder (principal) | CPT/HCPCS: 99202 ==

== ENCOUNTER 2024-07-30 09:00 | Outpatient (RCR) | payer MEDICARE, BC, SELFPAY ==
--- NOTE | 2024-06-15 10:04 | MHC.PT.EP ---
[facility] [place] Office [place] Office [place] Office [address] [place] J [address] [phone] F: [phone] F: [phone] F: [phone] F: [phone] Physical Therapy Plan of Care Date of Evaluation: 06/15/24 Date of Surgery: Diagnosis: This is a 78 yo female presenting to skilled PT with a script for L shoulder OA. Assessment: This is a 78 yo female presenting to skilled PT with a script for L shoulder OA. Patient reporting ongoing shoulder pain without injury for about 2 months now. Pain has not improved. She has been to [facility] [place] who referred her to PT and note states she would to return for injections if pain does not resolve. For pain management she takes ibuprofen, voltarin and prescribed NSAID and this helps a little. Pain is located throughout the anterior GHJ, UT and into the upper arm. Pain is described as annoying, constant and limiting. Pain increases with reaching up high, behind the back, with ADLs (hair care and UB dressing), pushing and pulling, sleeping on the L. Denies weakness in her hand, numbness or tingling. She reports that she cries often from her pain. Assessment reveals pain that ranges from up to a 4-10/10 at the worst. Patient demos decreased L shoulder and cervical ROM, strength of L shoulder and scapular stabilizers (very limited it seated scapular retraction), TTP at UT, lats, medial border of scap and impaired posture with forward head and rounded shoulders, anterior translation of GHJ. She did become very teary throughout the eval with talking about her pain, with palpation and with introduction to movement. Based on functional limitations, impaired QOL and pain tolerance patient is a good candidate for skilled PT 2x/wk for 4wks. Frequency and Duration: The patient will be seen 2x/wk for 4wks Short Term Goals: (In 2 weeks) Demo I with HEP Improve shoulder AROM by at least 10 degs Demo proper scapular recruitment with appropriate shoulder strengthening exercises once able to perform appropriate scap retraction Veterinary Assistant Goals: (in 4 wks) Improve shoulder nonpainful AROM to almost near equal B Demo at least 1 grade improvement in MMT for shoulder Improve SPADI by at least 10 points Improve overall functional QOL by at least 50% Treatment Plan: Modalities to reduce pain, spasms and effusion. Manual therapy to restore motion and function. Therapeutic exercise to improve strength and flexibility. Neuromuscular re-education for posture and balance. Therapeutic activities to return to functional activities of daily living. Electronically signed by: Rosario Bustillo PT Please sign and return to therapist. Thank you for your referral.
--- NOTE | 2024-08-31 07:29 | MHC.PT.DC ---
[facility] [place] [facility] [place] Office [place] [facility] [address] [phone] F: [phone] F: [phone] F: [phone] F: [phone] Physical Therapy Discharge Report Diagnosis: This is a 78 yo female presenting to skilled PT with a script for L shoulder OA. Date of Surgery: Date of Evaluation: 06/15/24 Date of Discharge: Treatments to Date: 11 Cancellations to Date: 0 No Shows to Date: 0 Discharge Status: Improved Function Independent with HEP Discharge Summary: 07/30: Patient has come to 10 visits of PT, she has progressed her ROM, pain management and her strength however she is still pretty weak. I did highly encourage her to continue her HEP and to return to the MD if needed for further assessment. Patient is motivated and I in her HEP, has met her goals and feels like she is ready for DC. Electronically signed by: Rosario Bustillo, PT Please sign and return to therapist. Thank you for your referral.
== END 2024-08-31 07:29 | disposition home or self-care (01) ==
LOC: HO.PTCHIC 09:00
PROVIDERS: PCP Physician Assistant; Visit Provider Orthopaedic Surgery
DX: M19.012 Primary osteoarthritis, left shoulder (principal)
CPT/HCPCS: 97110; 97140; 97162

== ENCOUNTER 2024-11-11 08:41 | Outpatient (REF) | payer MEDICARE, BC, SELFPAY ==
[2024-11-11 09:41] LABS: Hematocrit 33.3 % (37.0-47.0); Hemoglobin 10.6 g/dl (12.0-16.0); Mean Corpuscular HGB Conc 31.8 g/dl (31.0-35.0); Mean Corpuscular Hemoglobin 29.9 pg (27.0-33.0); Mean Corpuscular Volume 94.1 fL (80.0-98.0); PLT CLUMP 1; Red Blood Count 3.54 X10*6/uL (4.20-5.50); Red Cell Distribution Width 12.9 % (11.0-16.0)
[2024-11-11 10:15] LABS: Alanine Aminotransferase 26 U/L (0-31); Albumin Level 4.1 g/dL (3.5-5.0); Alkaline Phosphatase 49 U/L (39-117); Anion Gap 11 (12-20); Aspartate Amino Transferase 32 U/L (5-31); Bilirubin Total 0.3 mg/dL (0.0-1.0); Blood Urea Nitrogen 26 mg/dL (9-16); Calcium 9.4 mg/dL (8.4-10.2); Carbon Dioxide 26 mmol/L (22-29); Chloride 110 mmol/L (96-108); Cholesterol 158 mg/dL (<200); Estimated Glomerular Filt Rate 53; Glucose Fasting 98 mg/dL (60-99); HDL Cholesterol 72 mg/dL (>40); LDL Cholesterol Calculated 76 mg/dL (<100); Sodium 142 mmol/L (135-145); Total Protein 7.3 g/dL (6.5-8.0); Triglycerides 53 mg/dL (<150)
[2024-11-11 10:28] LABS: White Blood Count 6.2 X10*3/uL (4.8-10.8)
[2024-11-11 10:29] LABS: Mean Platelet Volume 12.2 fL (9.4-12.3); Platelet Count 104 X10*3/uL (160-400)
[2024-11-11 10:45] LABS: Creatinine Urine 134.38 mg/dL; Microalbum/Creatinine Ratio Ur 25.3 ug/mg cr (<30)
== END 2024-11-11 08:42 | disposition home or self-care (01) ==
LOC: HO.LAB 08:41
PROVIDERS: PCP Physician Assistant; Visit Provider Physician Assistant
DX: I10 Essential (primary) hypertension (principal); E78.2 Mixed hyperlipidemia
CPT/HCPCS: 36415; 80053; 80061; 82043; 82570; 85027

== ENCOUNTER 2024-11-24 09:46 | Outpatient (AMB) | payer MEDICARE, BC, SELFPAY ==
[2024-11-24 10:22] VITALS: BP 110/52; PULSE 58; TEMP 36.2; O2SAT 100; BMI 17.6
--- NOTE | 2024-11-24 10:22 | A.OFFPC_ITS ---
Vital Signs 11/24/24 10:22 Height 5 ft 3.5 in Weight 101 lb 2 oz BMI 17.6 BP 110/52 L Blood Pressure Location Lt brachial Position Sitting Pulse 58 Pulse Source Pulse Oximeter Temp 97.1 F Temp Source Temporal Artery Scan Pulse Oximetry (%) 100 Oxygen Delivery Method Room Air Intake Visit Reasons: f/u HTN Forepart Reducer Required: No Accompanied by: Self / Same As Patient Allergies alendronate sodium Adverse Reaction (Intermediate, Verified 11/24/24 11:02) red eyes hydrochlorothiazide Adverse Reaction (Intermediate, Verified 11/24/24 11:02) frequent urination Medication List - Last Reconciled 11/24/24 by Emerson Kathleen PA-C atenolol 50 mg PO DAILY atorvastatin 10 mg PO DAILY cholecalciferol (vitamin D3) 50 mcg PO DAILY 90 days clonidine HCl 0.1 mg PO BID 90 days diclofenac sodium 1% 2 grams topical QID PRN 30 days ibuprofen 600 mg PO TID lisinopril 10 mg PO DAILY 90 days tramadol 50 mg PO Q6-8H PRN trazodone 100 mg PO BEDTIME Tobacco use date assessed: 11/24/24 Fall risk assessment: No Falls in past year Last assessed Fall Risk: 11/24/24 Dental Screening Dental Screen Date: 11/24/24 Did you have a dental visit in the last 12 months?: Yes Did you have a dental problem in the last 6 months where you did not have access to dental care?: No Was dental information given to patient?: Patient has dentist HPI f/u HTN HPI Details Patient is a 78-year-old female here today for a follow-up visit.? Patient has a past medical history significant for hypertension, hyperlipidemia, insomnia, carotid stenosis .. HTN: Patient's blood pressure acceptable today in office. She does not regularly check her blood pressure at home...? She denies any headaches, shortness of breath, chest discomfort. Noted microalbuminuria on most recent labs. .. Carotid stenosis: Carotid ultrasound done in November 2022 showing a moderate atherosclerotic prior in the right carotid artery. No severe stenosis requiring intervention. .. HLd: Lipid panel has been stable showing appropriate total cholesterol and LDL. Continues on on statin therapy without any side effects.? Will continue to follow lipid panel.? .. insomnia: Continues on trazodone with good effect on her sleep, Recently increased her trazodone to 100 mg at night which has been effective for her sleep. Laboratory Tests 05/21/24 11/11/24 11/11/24 07:42 08:46 08:49 RBC 3.54 L Hgb 10.6 L Creatinine 1.01 Fasting Glucose 108 H 98 Cholesterol 158 Urine Microalbumin 34.0 PFSH Medical History Annual physical exam Anxiety Cataract Osteoporosis Insomnia HTN (hypertension) Surgical History H/O colonoscopy Family History Father Lung cancer Mother CVD (cardiovascular disease) Stroke Social History Household Members: Spouse and Family Housing: House Alcohol intake: never Patient Tobacco Use Status: Never used Tobacco e-Cigarette/Vaping Use: Never Used Second Hand Smoke Exposure: No service: No Current occupational status: retired 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 1. Little interest or pleasure in doing things: not at all 2. Feeling down, depressed, or hopeless: not at all 3. Trouble falling or staying asleep, or sleeping too much: not at all 4. Feeling tired or having little energy: not at all 5. Poor appetite or overeating: not at all 6. Feeling bad about yourself - or that you are a failure or have let yourself or your family down: not at all 7. Trouble concentrating on things, such as reading the newspaper or watching television: not at all 8. Moving or speaking so slowly that other people could have noticed. Or the opposite - being so fidgety or restless that you have been moving around a lot more than usual: not at all 9. Thoughts that you would be better off or of hurting yourself in some way: not at all Total score: 0 Depression Screening Interpretation: Negative Depression Screening Done: Yes 55520 - PHQ-9 Billing: Yes Source: Developed by Drs. Antonio Bruce, Ubaldo Mayers and colleagues, with an educational john from [employer]. Thrive Questionnaire Date Thrive assessed: 11/24/24 I am a: Patient What is your living situation today?: I have a steady place to live Within the past 12 months, did the food you bought not last and you didn't have the money to get more?: Never true Within the past 12 months, did you worry whether your food would run out before you got money to buy more?: Never true Do you have trouble paying for medicines?: No Do you have trouble getting transportation to medical appointments?: No Do you have trouble paying your heating and electricity bill?: No Do you have trouble taking care of your child, family member or friend?: No Do you have trouble with day-to-day activities such as bathing, preparing meals, shopping, managing finances, etc.?: No Are you currently unemployed and looking for a job?: No Are you interested in more education?: No Please select the resources that you would like help with: None Currently or been in a relationship where the following occur: No concerns reported THRIVE Score: 0 AUDIT C Alcohol Use Questionnaire (AUDIT-C) 1. How often do you have a drink containing alcohol?: Never 3. How often do you have six or more drinks on one occasion?: Never Total Score: 0 JULIAN-7 AMB Questionnaire JULIAN-7 Date JULIAN - 7 assessed: 11/24/24 Feeling nervous, anxious, or on edge: 0 = Not at all Not being able to stop or control worryin = Not at all Worrying too much about different things: 0 = Not at all Trouble relaxin = Not at all Being so restless that it is hard to sit still: 0 = Not at all Becoming easily annoyed or irritable: 0 = Not at all Feeling afraid as if something awful might happen: 0 = Not at all Total JULIAN-7 score (0-4 normal; 5-9 mild; 10-14 moderate; 15-21 severe): 0 Source: Developed by Drs. Antonio Bruce, Ubaldo Mayers and colleagues, with an educational john from [employer]. JULIAN-7 Assessment Billing JULIAN-7 Assessment Tool: JULIAN-7 Assessment 23468 Review of Systems Const Denies headache(s) Eyes Denies loss of vision ENT Denies vertigo, Denies dizziness, Denies headache(s) and Denies sore throat Card Denies chest pain, Denies leg edema and Denies lightheadedness Resp Denies cough, Denies hemoptysis and Denies wheezing GI Denies abdominal pain, Denies melena, Denies constipation, Denies diarrhea and Denies vomiting Denies urinary frequency, Denies dysuria and Denies urinary urgency Musc Denies arthralgias, Denies joint swelling, Denies numbness and Denies tingling Neuro Denies Abnormal speech present, Denies behavioral changes, Denies vertigo, Denies dizziness, Denies headache(s), Denies loss of vision, Denies memory loss, Denies numbness and Denies tingling Psych Denies anxiety, Denies behavioral changes, Denies depression, Denies memory loss and Denies panic attacks Errol/Lymph Denies easy bleeding and Denies easy bruising Aller/Immun Denies wheezing Physical exam (Primary Care) Vital Signs: Last Vital Signs Temp 97.1 F 11/24/24 10:22 Pulse 58 11/24/24 10:22 BP 110/52 L 11/24/24 10:22 Pulse Ox 100 11/24/24 10:22 Oxygen Delivery Method Room Air 11/24/24 10:22 BMI result Body Mass Index 17.6 Tobacco/Smoking Status: Tobacco use Status Tobacco use date assessed 11/24/24 11/24/24 10:45 Patient Tobacco Use Status Never used Tobacco 11/24/24 10:24 e-Cigarette/Vaping Use Never Used 11/24/24 10:24 PHQ-9: PHQ-9 Score PHQ-9: Total score 0 11/24/24 11:03 Depression Screening Interpretation: Negative Thrive Assessment: Date of Thrive Assessment Date Thrive assessed 11/24/24 11/24/24 10:45 Currently or been in a relationship where the following occur: No concerns reported Const General: healthy appearing, no acute distress, alert and awake Nutritional Appearance: well nourished Orientation/consciousness: oriented to person, oriented to place and oriented to time HENMT Ears: TM's normal bilaterally General nose exam: Normal nasal mucous membranes and turbinates present Eyes Conjunctivae: conjunctivae normal Sclerae: sclerae normal Pupils: Equal, round and reactive pupils present Neck Neck: Yes no lymphadenopathy and Yes no JVD Thyroid: Thyroid normal Carotids: no bruits Resp Effort & Inspection: normal respiratory effort and not tachypneic Auscultation: no crackles, no rales, no rhonchi and no wheezes Cardio Rate: regular rate Rhythm: regular rhythm Heart sounds: no murmurs and normal S1 and S2 GI Palpation (GI): Soft to palpation, nontender, no hepatomegaly and no splenomegaly Auscultation: normal bowel sounds Skin General skin exam: no rashes or lesions noted and dry skin Neuro General: oriented to person, oriented to place and oriented to time Cranial nerves: Yes Equal, round and reactive pupils present Speech: No Abnormal speech present Gait exam (Neuro): Normal gait present Motor exam (neuro): no tremor noted Extrem Right upper extremity: full ROM Left upper extremity: full ROM Right lower extremity: full ROM; no edema Left lower extremity: full ROM; no edema Psych Mental Status: mental status grossly normal Speech and movement: Normal speech and movement present Affect: normal affect Attitude: cooperative Thought process: Normal thought process present Coding Level of Care Code Est Pt Level 4 (95317) Diagnoses Primary hypertension I10 Hypertension type: primary hypertension Mixed hyperlipidemia E78.2 Microalbuminuria R80.9 Additional Codes JULIAN-7 Assessment Billing - JULIAN-7 Assessment Tool: JULIAN-7 Assessment 73667 ([id number]) PHQ-9 - 51051 - PHQ-9 Billing: Yes ([id number]) Assessment & Plan Assessment & Plan (1) HTN (hypertension): Code(s): I10 - Essential (primary) hypertension Category: Medical Qualifiers: Hypertension type: primary hypertension Qualified Code(s): I10 - Essential (primary) hypertension Plan: Patient's blood pressure slightly acceptable today in office, we have increased her lisinopril to 10 mg which seems to be more effective. Patient's microalbuminurea improved. Goal blood pressures to be below 140/90 (2) Mixed hyperlipidemia: Code(s): E78.2 - Mixed hyperlipidemia Category: Medical Plan: Most recent lipid panel showing excellent control over total cholesterol and LDL. Goal LDL to remain below 100. (3) Microalbuminuria: Code(s): R80.9 - Proteinuria, unspecified Category: Medical Plan: As per HPI patient is microalbuminuria has improved since increasing her lisinopril to 10 mg. This could be in the setting of using more NSAID due to her left shoulder bursitis. Orders: Orders Complete Blood Count no Diff Today I10 - Essential (primary) hypertension Lipid Panel Today E78.2 - Mixed hyperlipidemia IRON PROFILE Today D50.9 - Iron deficiency anemia, unspecified, D61.818 - Other pancytopenia Vitamin B12 and Folate Today D61.818 - Other pancytopenia, E53.8 - Deficiency of other specified B group vitamins Comprehensive [place]. Panel Fast Today I10 - Essential (primary) hypertension Patient Instructions: Goal: Blood pressure to be below 140/90 Barriers: Adherence to physical activity and healthy eating habits
== END 2024-11-24 11:16 | disposition home or self-care (01) ==
LOC: HO.HMCH 09:46
PROVIDERS: PCP Physician Assistant; Visit Provider Physician Assistant
DX: I10 Essential (primary) hypertension (principal); E78.2 Mixed hyperlipidemia; R80.9 Proteinuria, unspecified

== ENCOUNTER → 2024-11-24 09:46 | Outpatient (BNVA) | payer MEDICARE, BC, SELFPAY | PROVIDERS: PCP Physician Assistant; Visit Provider Physician Assistant | DX: I10 Essential (primary) hypertension (principal); E78.2 Mixed hyperlipidemia; R80.9 Proteinuria, unspecified | CPT/HCPCS: 96127; 99212 ==

== ENCOUNTER 2025-04-17 07:14 | Outpatient (REF) | payer MEDICARE, BC, SELFPAY ==
--- OUTSIDE RECORDS SUMMARY | 2025-04-17 07:17 | XMS_ITS | Patient Health Record ---
Author Organization [facility] Address [address] [place] [id number] Care Team Providers Care Road Gang Supervisor Name Role Phone Antonio Lees Unavailable [phone] Reason For Referral No Information Plan Of Treatment No Information
[2025-04-17 08:12] LABS: Hematocrit 32.3 % (37.0-47.0); Hemoglobin 10.4 g/dl (12.0-16.0); Mean Corpuscular HGB Conc 32.2 g/dl (31.0-35.0); Mean Corpuscular Hemoglobin 30.2 pg (27.0-33.0); Mean Corpuscular Volume 93.9 fL (80.0-98.0); NRBC Abs Auto 0.000 X10*3/uL (0.0-0.012); NRBC Pct Auto 0.0 /100WBC (0.0-0.2); Platelet Count 133 X10*3/uL (160-400); Red Blood Count 3.44 X10*6/uL (4.20-5.50); White Blood Count 6.4 X10*3/uL (4.8-10.8)
[2025-04-17 08:42] LABS: Alanine Aminotransferase 22 U/L (0-31); Albumin Level 4.1 g/dL (3.5-5.0); Alkaline Phosphatase 50 U/L (39-117); Anion Gap 10 (12-20); Aspartate Amino Transferase 25 U/L (5-31); Blood Urea Nitrogen 25 mg/dL (9-16); Calcium 9.0 mg/dL (8.4-10.2); Carbon Dioxide 29 mmol/L (22-29); Chloride 110 mmol/L (96-108); Cholesterol 159 mg/dL (<200); Estimated Glomerular Filt Rate 49; HDL Cholesterol 66 mg/dL (>40); Iron 89 mcg/dL (30-160); Percent Iron Saturation 35 % (15-50); Potassium 4.7 mmol/L (3.3-5.1); Sodium 144 mmol/L (135-145); Total Iron Binding Capacity 255 mcg/dL (228-428); Total Protein 6.7 g/dL (6.5-8.0); Triglycerides 53 mg/dL (<150); Unsaturated Iron Binding 166 ug/dL
[2025-04-17 09:18] LABS: Folate 14.1 ng/mL (> or = 4.0); Vitamin B12 466 pg/mL (200-900)
== END 2025-04-17 07:15 | disposition home or self-care (01) ==
LOC: HO.LAB 07:14
PROVIDERS: PCP Physician Assistant; Visit Provider Physician Assistant
DX: I10 Essential (primary) hypertension (principal); E78.2 Mixed hyperlipidemia; D50.9 Iron deficiency anemia, unspecified; D61.818 Other pancytopenia; E53.8 Deficiency of other specified B group vitamins
CPT/HCPCS: 36415; 80053; 80061; 82607; 82746; 83540; 85027

== ENCOUNTER 2025-06-01 09:16 | Outpatient (AMB) | payer MEDICARE, BC, SELFPAY ==
--- NOTE | 2025-06-01 09:40 | MHC.PC.OV ---
Vital Signs 06/01/25 09:45 Height 5 ft 3.5 in Weight 99 lb BMI 17.3 BP 150/80 H Blood Pressure Location Lt brachial Position Sitting Temp 96.9 F Temp Source Temporal Artery Scan Intake Visit Reasons: F/u HTN/HLD Intake Note: Patient is here to follow up on HTN, HLD. Flat Breakdown Processor Required: No Furnace Stock Inspector: Not Required per policy Accompanied by: Self / Same As Patient Allergies alendronate sodium Adverse Reaction (Intermediate, Verified 06/01/25 09:54) red eyes hydrochlorothiazide Adverse Reaction (Intermediate, Verified 06/01/25 09:54) frequent urination Medication List - Last Reconciled 06/01/25 by Emerson Kathleen PA-C atenolol 50 mg PO DAILY atorvastatin 10 mg PO DAILY cholecalciferol (vitamin D3) 50 mcg PO DAILY 90 days clonidine HCl 0.1 mg PO BID 90 days diclofenac sodium 1% 2 grams topical QID PRN 30 days ibuprofen 600 mg PO TID lisinopril 10 mg PO DAILY 90 days tramadol 50 mg PO Q6-8H PRN trazodone 100 mg PO BEDTIME Tobacco use date assessed: 06/01/25 Fall risk assessment: No Falls in past year Last assessed Fall Risk: 06/01/25 Dental Screening Dental Screen Date: 11/24/24 HPI F/u HTN/HLD HPI Details Patient is a 79-year-old female here today for a follow-up visit.? Patient has a past medical history significant for hypertension, hyperlipidemia, insomnia, carotid stenosis .. HTN: Patient's blood pressure slightly elevated today in office. She reports her home blood pressures at are 130 systolic..? She denies any headaches, shortness of breath, chest discomfort. Noted microalbuminuria on most recent labs. .. Carotid stenosis: Carotid ultrasound done in November 2022 showing a moderate atherosclerotic prior in the right carotid artery. No severe stenosis requiring intervention. . Osteoporosis: Diagnosed in 2017, most recent and density done in 2021 showing a T-score -3. She is willing to continue to monitor. We did discuss perhaps starting Fosamax to help increase bone density though she declines at this time. .. HLd: Lipid panel has been stable showing appropriate total cholesterol and LDL. Continues on on statin therapy without any side effects.? Will continue to follow lipid panel.? .. insomnia: Continues on trazodone with good effect on her sleep, Recently increased her trazodone to 100 mg at night which has been effective for her sleep. 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 1. Little interest or pleasure in doing things: not at all 2. Feeling down, depressed, or hopeless: not at all 3. Trouble falling or staying asleep, or sleeping too much: not at all 4. Feeling tired or having little energy: not at all 5. Poor appetite or overeating: not at all 6. Feeling bad about yourself - or that you are a failure or have let yourself or your family down: not at all 7. Trouble concentrating on things, such as reading the newspaper or watching television: not at all 8. Moving or speaking so slowly that other people could have noticed. Or the opposite - being so fidgety or restless that you have been moving around a lot more than usual: not at all 9. Thoughts that you would be better off or of hurting yourself in some way: not at all Total score: 0 Depression Screening Interpretation: Negative Depression Screening Done: Yes 52965 - PHQ-9 Billing: Yes Source: Developed by Drs. Antonio Bruce, Brie Gray, Ubaldo Torres and colleagues, with an educational john from [employer] Thrive Questionnaire Date Thrive assessed: 11/24/24 I am a: Patient What is your living situation today?: I have a steady place to live Within the past 12 months, did the food you bought not last and you didn't have the money to get more?: Never true Within the past 12 months, did you worry whether your food would run out before you got money to buy more?: Never true Do you have trouble paying for medicines?: No Do you have trouble getting transportation to medical appointments?: No Do you have trouble paying your heating and electricity bill?: No Do you have trouble taking care of your child, family member or friend?: No Do you have trouble with day-to-day activities such as bathing, preparing meals, shopping, managing finances, etc.?: No Are you currently unemployed and looking for a job?: Yes Are you interested in more education?: No Please select the resources that you would like help with: None Currently or been in a relationship where the following occur: No concerns reported THRIVE Score: 0 AUDIT C Alcohol Use Questionnaire (AUDIT-C) 1. How often do you have a drink containing alcohol?: Never Total Score: 0 JULIAN-7 AMB Questionnaire JULIAN-7 Date JULIAN - 7 assessed: 11/24/24 Feeling nervous, anxious, or on edge: 0 = Not at all Not being able to stop or control worryin = Not at all Worrying too much about different things: 0 = Not at all Trouble relaxin = Not at all Being so restless that it is hard to sit still: 0 = Not at all Becoming easily annoyed or irritable: 0 = Not at all Feeling afraid as if something awful might happen: 0 = Not at all Total JULIAN-7 score (0-4 normal; 5-9 mild; 10-14 moderate; 15-21 severe): 0 Source: Developed by Drs. Antonio Bruce, Brie Gray, Ubaldo Torres and colleagues, with an educational john from [employer] JULIAN-7 Assessment Billing JULIAN-7 Assessment Tool: JULIAN-7 Assessment 66505 Review of Systems Const Denies headache(s) Eyes Denies loss of vision ENT Denies vertigo, Denies dizziness, Denies headache(s) and Denies sore throat Card Denies chest pain, Denies leg edema and Denies lightheadedness Resp Denies cough, Denies hemoptysis and Denies wheezing GI Denies abdominal pain, Denies melena, Denies constipation, Denies diarrhea and Denies vomiting Denies urinary frequency, Denies dysuria and Denies urinary urgency Musc Denies arthralgias, Denies joint swelling, Denies numbness and Denies tingling Neuro Denies Abnormal speech present, Denies behavioral changes, Denies vertigo, Denies dizziness, Denies headache(s), Denies loss of vision, Denies memory loss, Denies numbness and Denies tingling Psych Denies anxiety, Denies behavioral changes, Denies depression, Denies memory loss and Denies panic attacks Errol/Lymph Denies easy bleeding and Denies easy bruising Aller/Immun Denies wheezing Physical exam (Primary Care) Vital Signs: Last Vital Signs Temp 96.9 F 06/01/25 09:45 BP 150/80 H 06/01/25 09:45 Care Plan Goal for BP management: Patient continues on atenolol and lisinopril with good effect on her blood pressure, blood pressure is reported 130 systolic at home Next steps: Continue monitoring blood pressure at home with blood pressure to be below 140/90 BMI result Body Mass Index 17.3 BMI Assessment/Plan discussion: Low BMI Low, Plan discussed: lifestyle, increase calorie intake and dietary Tobacco/Smoking Status: Tobacco use Status Tobacco use date assessed 06/01/25 06/01/25 09:51 Patient Tobacco Use Status Never used Tobacco 06/01/25 09:42 e-Cigarette/Vaping Use Never Used 06/01/25 09:42 PHQ-9: PHQ-9 Score PHQ-9: Total score 0 06/01/25 10:17 Depression Screening Interpretation: Negative Thrive Assessment: Date of Thrive Assessment Date Thrive assessed 11/24/24 06/01/25 09:42 Currently or been in a relationship where the following occur: No concerns reported Const General: healthy appearing, no acute distress, alert and awake Nutritional Appearance: well nourished Orientation/consciousness: oriented to person, oriented to place and oriented to time HENMT Ears: TM's normal bilaterally General nose exam: Normal nasal mucous membranes and turbinates present Eyes Conjunctivae: conjunctivae normal Sclerae: sclerae normal Pupils: Equal, round and reactive pupils present Neck Neck: Yes no lymphadenopathy and Yes no JVD Thyroid: Thyroid normal Carotids: no bruits Resp Effort & Inspection: normal respiratory effort and not tachypneic Auscultation: no crackles, no rales, no rhonchi and no wheezes Cardio Rate: regular rate Rhythm: regular rhythm Heart sounds: no murmurs and normal S1 and S2 GI Palpation (GI): Soft to palpation, nontender, no hepatomegaly and no splenomegaly Auscultation: normal bowel sounds Skin General skin exam: no rashes or lesions noted and dry skin Neuro General: oriented to person, oriented to place and oriented to time Cranial nerves: Yes Equal, round and reactive pupils present Speech: No Abnormal speech present Gait exam (Neuro): Normal gait present Motor exam (neuro): no tremor noted Extrem Right upper extremity: full ROM Left upper extremity: full ROM Right lower extremity: full ROM; no edema Left lower extremity: full ROM; no edema Psych Mental Status: mental status grossly normal Speech and movement: Normal speech and movement present Affect: normal affect Attitude: cooperative Thought process: Normal thought process present Immunizations pneumoc 20-gilmer conj-dip cr(PF) 0.5 mL IM syringe Performing Provider: Emerson Kathleen PA-C [facility] Administered by: RIZWANA Wilkins on 06/01/25 10:16 Dose Route Admin Location Dispensed Lot Number Expiration Date [facility] Digital Marketing Manager 0.5 mL IM Left Deltoid 0.5 mL [id number] 05/12/26 [employer] Total Dispensed Waste 0.5 mL 0 % VIS Given Date VIS Provided VIS Publication Date 06/01/25 Single Vaccine 25 Eligibility Eligibility Date Funding Source Not [facility] Eligible 06/01/25 Private Coding Level of Care Code Est Pt Level 4 (02005) Diagnoses Primary hypertension I10 Hypertension type: primary hypertension Mixed hyperlipidemia E78.2 Age-related osteoporosis without current pathological fracture M81.0 Osteoporosis type: age-related Presence of current pathological fracture: without current pathological fracture Additional Codes JULIAN-7 Assessment Billing - JULIAN-7 Assessment Tool: JULIAN-7 Assessment [id number] ([id number]) PHQ-9 - 01435 - PHQ-9 Billing: Yes ([id number]) Assessment & Plan Assessment & Plan (1) HTN (hypertension): Code(s): I10 - Essential (primary) hypertension Category: Medical Qualifiers: Hypertension type: primary hypertension Qualified Code(s): I10 - Essential (primary) hypertension Plan: Patient's blood pressure slightly acceptable today in office, patient does report blood pressures at home are much better. ? We called hypertension. patient continues on lisinopril and atenolol with good effect Patient's microalbuminurea improved. Goal blood pressures to be below 140/90 (2) Mixed hyperlipidemia: Code(s): E78.2 - Mixed hyperlipidemia Category: Medical Plan: Most recent lipid panel showing excellent control over total cholesterol and LDL. Goal LDL to remain below 100. (3) Osteoporosis: Comment: 04/2018 Code(s): M81.0 - Age-related osteoporosis without current pathological fracture Category: Medical Qualifiers: Osteoporosis type: age-related Presence of current pathological fracture: without current pathological fracture Qualified Code(s): M81.0 - Age-related osteoporosis without current pathological fracture Plan: Patient was diagnosed osteoporosis in 2017, most recent bone density in 2021 showing T-score of -3. We did discuss perhaps starting Fosamax though patient declines at this time. She will continue on vitamin-D and calcium supplementation. Orders: Orders Complete Blood Count no Diff Today I10 - Essential (primary) hypertension Lipid Panel Today E78.2 - Mixed hyperlipidemia Microalbumin, Random (w Creat) Today I10 - Essential (primary) hypertension Comprehensive [place]. Panel Fast Today I10 - Essential (primary) hypertension XR DEXA axial skeleton Today M81.0 - Age-related osteoporosis without current pathological fracture, Z78.0 - Asymptomatic menopausal state Pneumococcal 20 Immunization Today Z23 - Encounter for immunization Patient Instructions: Goal: Blood pressure to be below 140/90 at home, goal LDL to remain below 130 Barriers: Adherence to physical activity and healthy eating habits
[2025-06-01 09:45] VITALS: BP 150/80; TEMP 36.1; BMI 17.3
--- OUTSIDE RECORDS SUMMARY | 2025-06-01 10:14 | XMS_ITS | Patient Health Record ---
Author Organization [facility] Address [address] [place] [id number] Care Team Providers Care Tier And Detonator Name Role Phone Antonio Lees Unavailable [phone] Reason For Referral No Information Plan Of Treatment No Information
== END 2025-06-01 10:26 | disposition home or self-care (01) ==
LOC: HO.HMCH 09:18
PROVIDERS: PCP Physician Assistant; Visit Provider Physician Assistant
DX: I10 Essential (primary) hypertension (principal); E78.2 Mixed hyperlipidemia; M81.0 Age-related osteoporosis without current pathological fracture; Z23 Encounter for immunization

== ENCOUNTER → 2025-06-01 09:16 | Outpatient (BNVA) | payer MEDICARE, BC, SELFPAY | PROVIDERS: PCP Physician Assistant; Visit Provider Physician Assistant | DX: I10 Essential (primary) hypertension (principal); E78.2 Mixed hyperlipidemia; G47.00 Insomnia, unspecified; I65.21 Occlusion and stenosis of right carotid artery; M81.0 Age-related osteoporosis without current pathological fracture; Z23 Encounter for immunization; Z78.0 Asymptomatic menopausal state | CPT/HCPCS: 90471; 90677; 96127; 99212 ==